=== PATIENT | male | born 1985 | race Caucasian/White ===

== ENCOUNTER 2018-01-07 20:38 | Emergency (ER) | payer BC ==
[2018-01-07 21:45] VITALS: BP 169/93; PULSE 92; O2SAT 98
--- NOTE | 2018-01-07 22:05 | ERPHSYRPT ---
- History of Present Illness Time Seen by Provider: 01/07/18 21:45 Source: patient, family Exam Limitations: no limitations Patient Subjective Stated Complaint: pt states he was weedeating and twisted his right ankle; pt sustained similar injury to same ankle approx 1 week ago but did not have ankle evaluated; tonight he states the ankle hurts a lot worse than before. Triage Nursing Assessment: pt a&o x3; skin p, w, & d; obvious edema noted to lateral right maleolus; pain localized to same area; assisted to room per wheelchair; spouse at bedside. Physician History: RN HPI NOTE REVIEWED. ADDITIONALLY, PT HAD SIMILAR EPISODE A WEEK AGO. 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 CAN BEAR WEIGHT BUT HURTS TO MOVE IT Method of Injury: twisted Occurred: this evening, hours ago (ONE) Quality: constant, aching Severity of Pain-Max: moderate Severity of Pain-Current: mild Lower Extremities Pain: ankle: right Modifying Factors: Improves With: immobilization (IMPROVES), movement (WORSENS) Associated Symptoms: popping sensation, other (NAUSEA WITH INJURY) Allergies/Adverse Reactions: No Known Drug Allergies Allergy (Verified 01/07/18 21:44) Home Medications: Amlodipine Besylate 10 mg PO DAILY 01/07/18 [History] Losartan Potassium 50 mg PO DAILY 01/07/18 [History] Hx Tetanus, Diphtheria Vaccination/Date Given: No Hx Influenza Vaccination/Date Given: No Hx Pneumococcal Vaccination/Date Given: No Immunizations Up to Date: No - Review of Systems Constitutional: No Symptoms Eyes: No Symptoms Ears, Nose, & Throat: No Symptoms Respiratory: No Symptoms Cardiac: No Symptoms Abdominal/Gastrointestinal: No Symptoms Genitourinary Symptoms: No Symptoms 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) Skin: Other (LATERAL RIGHT ANKLE WITH SWELLING AND ECCHYMOSIS) Psychological: No Symptoms Endocrine: No Symptoms Hematologic/Lymphatic: No Symptoms Immunological/Allergic: No Symptoms All Other Systems: Reviewed and Negative - Past Medical History Pertinent Past Medical History: No Neurological History: No Pertinent History ENT History: No Pertinent History Cardiac History: No Pertinent History Respiratory History: No Pertinent History Endocrine Medical History: No Pertinent History Musculoskeletal History: No Pertinent History GI Medical History: No Pertinent History History: No Pertinent History Psycho-Social History: No Pertinent History Male Reproductive Disorders: No Pertinent History - Past Surgical History Past Surgical History: No Neuro Surgical History: No Pertinent History Cardiac: No Pertinent History Respiratory: No Pertinent History Gastrointestinal: No Pertinent History Genitourinary: No Pertinent History Musculoskeletal: No Pertinent History Male Surgical History: No Pertinent History - Social History Smoking Status: Never smoker Exposure to second hand smoke: No Drug Use: none Patient Lives Alone: No - Nursing Vital Signs Nursing Vital Signs: Initial Vital Signs Temperature 98.5 F 01/07/18 21:36 Pulse Rate 92 H 01/07/18 21:36 Respiratory Rate 20 01/07/18 21:36 Blood Pressure 169/93 01/07/18 21:36 O2 Sat by Pulse Oximetry 98 01/07/18 21:36 Pain Scale Pain Intensity 9 - Physical Exam General Appearance: mild distress, alert, No anxiety, No lethargy Eyes, Ears, Nose, Throat Exam: normal ENT inspection Neck Exam: normal inspection, non-tender Cardiovascular/Respiratory Exam: chest non-tender Gastrointestinal/Abdominal Exam: non-tender Back Exam: normal inspection, normal range of motion Hips Exam: bilateral: non-tender, normal inspection, normal range of motion, no evidence of injury Legs Exam: bilateral leg: non-tender, normal inspection, normal range of motion , no evidence of injury Knees Exam: bilateral knee: non-tender, normal inspection, normal range of motion, no evidence of injury Ankle Exam: right ankle: bone tenderness, ecchymosis, limited range of motion, soft tissue tenderness, swelling, left ankle: non-tender, normal inspection, normal range of motion, no evidence of injury Foot Exam: bilateral foot: non-tender, normal inspection, normal range of motion , no evidence of injury Neuro/Tendon Exam: normal sensation, normal motor functions, normal tendon functions, responds to pain, no evidence tendon injury Mental Status Exam: alert, oriented x 3, cooperative Skin Exam: normal color SpO2 Interpretation: normal SpO2: 98 Oxygen Delivery: Room Air - Course Nursing assessment & vital signs reviewed: Yes Ordered Tests: Active Orders 24 hr Category Date Time Status ANKLE (3 VIEWS) Stat Exams 01/07/18 22:05 Taken I INTERPRETED XRAY OF RIGHT ANKLE-SOFT TISSUE SWELLING PRESENT LATERALLY; NO ACUTE FX OR DISLOCATION - Progress Progress: improved Counseled pt/family regarding: diagnosis, need for follow-up, rad results - Departure Time of Disposition: 22:23 Departure Disposition: Home Clinical Impression: Ankle sprain Condition: Good Critical Care Time: No Additional Instructions: FOLLOW UP WITH PRIMARY DOCTOR FOR PERSISTENT PAIN. ADD IBUPROFEN FOR PAIN. ICE PACK TO ANKLE 3 TIMES DAILY FOR 3 DAYS. ELEVATED ANKLE IF NOT AMBULATING. Prescriptions: Hydrocodone/APAP 5/325 [[place] 5/325 mg] 1 each PO Q6H PRN PRN #10 tablet MDD 4 TABLETS PRN Reason: Pain
--- NOTE | 2018-01-08 09:29 | XRAY ---
Indication: Pain following twisting injury. Comparison: February 05, 2006P 3 views of the right ankle again demonstrates anterior lateral soft tissue swelling with new tiny heel spurs. No other bony, articular, or soft tissue abnormalities.
== END 2018-01-07 22:48 | disposition home or self-care (01) ==
LOC: ED 20:38
DX: S93.401A Sprain of unspecified ligament of right ankle, initial encounter (principal); X50.1XXA Overexertion from prolonged static or awkward postures, initial encounter; Y93.H2 Activity, gardening and landscaping
CPT/HCPCS: 73610; 99283